=== PATIENT | male | born 1960 | race Caucasian/White ===

== ENCOUNTER → 2017-06-06 14:43 | Outpatient (POV) | payer BC, SELFPAY | PROVIDERS: Family Provider Family Medicine; Visit Provider Nurse Practitioner Acute Care | DX: Z00.00 Encounter for general adult medical examination without abnormal findings (principal) ==

== ENCOUNTER → 2018-07-17 12:31 | Outpatient (CLI) | payer BC, SELFPAY ==
--- NOTE | 2018-07-17 12:38 | CT_ITS ---
CT lung screening EXAM: CT LUNG LOW DOSE WO CONTRAST HISTORY: 84 pack-year smoking history, asymptomatic for lung cancer ITS.REASON: HX TOBACCO USE ORDERING PHYSICIAN: Corey Hampton MD PATIENT AGE: 58 years COMPARISON: None TECHNIQUE: The exam was performed on a GE Light Speed [address] scanner using 2.90 mGy CTDI. A low dose helical CT CHEST was performed on a multi-detector scanner. All CT scans at the facility use one or more dose reduction, viz: automated exposure control, ma/kV adjustment per patient size (including targeted exams where dose is matched to indication, i.e. head), or iterative reconstruction technique. The LDCT was performed in a facility that meets the criteria for the screening program. Data regarding this exam was submitted to ACR which is an approved registry. The order for this exam indicates that it came as a result of a lung cancer screening counseling shard decision-making visit that included all the elements required of such a visit including smoking cessation. The radiologist interpreting this exam meets the CMS criteria for the LDCT lung cancer screening program. The exam is reported using the Lung-RADS classification scale and reported to the ACR registry. NOTE: This study was performed for the specific purposes of lung cancer screening and is not an alternative to diagnostic chest CT. RADIATION DOSE: CTDI vol(CT dose Index-volume) = 2.90mG DLP (Dose Length Product) = 99.92 mGcm FINDINGS: COPD, centrilobular emphysema, 3 mm noncalcified nodule right upper lobe #28. 3 mm noncalcified nodule along the major fissure on the right #43 mm noncalcified nodule left lower lobe #34 Coronary artery calcifications. Gynecomastia. IMPRESSION: 1. Lung RADS Category: 2, benign 2. Other findings: Coronary artery disease RECOMMENDATIONS: 12 month LDCT follow-up
== END ==
PROVIDERS: PCP Family Medicine; Visit Provider Family Medicine
DX: Z12.2 Encounter for screening for malignant neoplasm of respiratory organs (principal); Z87.891 Personal history of nicotine dependence

== ENCOUNTER → 2019-07-30 12:29 | Outpatient (POV) | payer BC, SELFPAY | PROVIDERS: PCP Family Medicine; Visit Provider Specialist | DX: M79.642 Pain in left hand (principal); M79.641 Pain in right hand | CPT/HCPCS: 95886; 95909 ==

== ENCOUNTER 2019-12-18 09:33 | Emergency (ER) | payer BC, SELFPAY ==
--- NOTE | 2019-12-18 09:57 | HMH.EDUTC ---
[facility] [place] Clinical Impression: Viral syndrome Disposition: Home, Self-Care Condition on Discharge: Good Instructions: DI for Viral Syndrome Additional Instructions: Drink plenty of fluids. Take tylenol for pain or fever. Follow up with your regular doctor. GO TO THE ER FOR ANY WORSENING SYMPTOMS .FOLLOW THE DIRECTIONS ON THE COVID-19 HAND OUT THAT WE GAVE YOU REGARDING SELF-ISOLATION UNTIL YOU KNOW YOUR COVID-19 RESULTS Prescriptions: Ondansetron [Zofran 4mg ODT] 4 mg PO Q8HP PRN #10 tab.rapdis PRN Reason: Nausea Transmission Status: Received by [facility] # Azithromycin [Z-Hermilo 250mg Tab*] 250 mg PO UD DOSE PK #6 tab Transmission Status: Received by [facility] # Referrals: Corey Hampton MD [Primary Care Provider] - Forms: Work/School Release Time of Disposition: 10:31 Medical Decision Making - Medical Records Medical records reviewed: No: I reviewed the patient's medical records. - Karthik Inquiry Pt receiving controlled substance: No Vital Signs: 12/18/19 09:58 12/18/19 10:40 Temperature 97.9 F 97.9 F Temperature Source Oral Pulse Rate 76 Pulse Rate [Right Brachial] 76 Respiratory Rate 19 19 Blood Pressure 134/86 Blood Pressure [Left Arm] 134/86 Blood Pressure Mean [Left Arm] 102 Blood Pressure Source [Left Arm] Automatic Cuff Blood Pressure Position [Left Arm] Sitting 02 Sat by Pulse Oximetry 98 Oxygen Delivery Method Room Air [facility] [place] HPI - General Stated complaint: covid exposure, fever, headache Time Seen by Provider: 12/18/19 09:57 - History of Present Illness Provider Complaint: He c/o 1 day of chest congestion, n/v/d and generally feeling bad since yesterday. He was exposed to COVID last week by his daughter that lives with him. - Related Data Home Medications Medication Instructions Recorded Confirmed Triamterene/Hydrochlorothiazid 1 each PO DAILY 07/03/18 07/18/18 [Triamterene-Hctz 50-25 mg Cap] levoFLOXacin [Levaquin 500mg 500 mg PO BID 07/03/18 07/03/18 tab] Omeprazole [Omeprazole 20mg 20 mg PO DAILY 07/04/18 07/18/18 Capsule] Previous Rx's Medication Instructions Recorded Azithromycin [Z-Hermilo 250mg Tab*] 250 mg PO UD DOSE PK #6 tab 12/18/19 Ondansetron [Zofran 4mg ODT] 4 mg PO Q8HP PRN #10 tab.rapdis 12/18/19 Allergies Allergy/AdvReac Type Severity Reaction Status Date / Time No Known Allergies Allergy Verified 07/18/18 11:18 [facility] History - Hepatitis A Screen Attestation statement:: This patient has been screened for Hepatitis A risk factors. I have reviewed the patient's past medical history: Yes Medical History: Denies:: Cancer, Diabetes Mellitus Type 1, Diabetes Mellitus Type 2, Internal Pacemaker, MRSA, Seizures Other Medical History: Denies: Blood Transfusion Reaction Other Surgeries: No: Pacemaker Amputation: No Fractures: No - Social History Smoking Status: Former smoker Alcohol Intake: never Substance Use Type: denies use Occupational Status: employed Housing: house Household Members: family Family Hx:: No significant family history ROS Obtained: Yes All systems reviewed & no additional complaints - Constitutional Constitutional: Reports chills, Reports fever(s), Reports poor appetite, Reports malaise - Eyes Eyes: Denies eye discharge - ENT Ears, Nose, Mouth, and Throat: Reports as per HPI Physical Exam - General General appearance: alert, in no apparent distress - Head Head exam: atraumatic, normocephalic, normal inspection - Eye Eye exam: Present: normal appearance, PERRL, EOMI - ENT ENT exam: Present: normal exam, normal oropharynx, mucous membranes moist, TM's normal bilaterally, normal external ear exam - Neck Neck exam: Present: normal inspection, full ROM, trachea midline. Absent: meningismus, lymphadenopathy - Chest Chest inspection: Present: normal inspection, symmetric chest wall rise. Absent:
[2019-12-18 09:58] VITALS: BP 134/86; PULSE 76; RESP 19; TEMP 36.6; O2SAT 98; BMI 43.3
[2019-12-18 10:40] VITALS: BP 134/86; PULSE 76; RESP 19; TEMP 36.6; O2SAT 98
== END 2019-12-18 10:43 | disposition home or self-care (01) ==
PROVIDERS: Emergency Provider Nurse Practitioner Family; PCP Family Medicine
DX: B34.9 Viral infection, unspecified (principal); Z20.828 Contact with and (suspected) exposure to other viral communicable diseases
CPT/HCPCS: 99201; U0003

== ENCOUNTER → 2020-08-22 12:22 | Outpatient (CLI) | payer BC, SELFPAY ==
--- NOTE | 2020-08-22 12:41 | XR_ITS ---
PROCEDURE: XR CHEST 2V CLINICAL HISTORY: HTN,PRIOR SMOKER, COMPARISON: CR CXR CHEST(2 VIEWS-NOT PORTABLE) from 08/18/[address] lung screening from 07/17/2018 FINDINGS: There is cardiomegaly without failure. The right-sided heart is prominent. This may in part be related to pericardial fat pad as seen on previous screening lung CT 6 7 17 COPD changes. No lobar consolidation or collapse. No acute bony abnormalities. IMPRESSION: No acute finding. Dictated by: Nabeel Montesinos MD 08/22/2020 19:51 Nabeel Montesinos MD in [place] 08/22/2020 19:51
[2020-08-22 13:25] LABS: Hematocrit 43.5 % (42.0-52.0); Hemoglobin 14.6 g/dL (14.1-18.0); Mean Corpuscular HGB Conc 33.6 g/dL (31.8-35.4); Mean Corpuscular Hemoglobin 29.1 pg (27.0-31.2); Mean Corpuscular Volume 86.4 fl (80-94); Platelet Count 337 K/mm3 (142-424); Red Blood Count 5.03 M/mm3 (4.60-6.20); Red Cell Distribution Width 14.1 % (11.5-17.5); White Blood Count 6.7 K/mm3 (4.8-10.8)
[2020-08-22 13:35] LABS: Hemoglobin A1C 5.6 % (4.0-6.0)
[2020-08-22 13:54] LABS: Alanine Aminotransferase 24 U/L (12-78); Albumin Level 4.1 g/dl (3.5-5.0); Albumin/Globulin Ratio 1.2 (1.1-1.8); Alkaline Phosphatase 76 U/L (38-126); Anion Gap 12.4 mEq/L (5-15); Aspartate Amino Transferase 28 U/L (17-59); Bilirubin,Total 0.5 mg/dl (0.2-1.3); Blood Urea Nitrogen 17 mg/dl (9-20); Calcium 9.1 mg/dl (8.4-10.2); Carbon Dioxide 28 mmol/L (22.0-30.0); Chloride 101 mmol/L (98-107); Chol/HDL Ratio 3.3 (1-3.5); Cholesterol 172 mg/dl (140-200); Estimated Glomerular Filt Rate 69 ml/min (>60); GFR (African American) 83 ML/MIN (>60); Globulin 3.3 g/dL (1.3-3.2); Glucose 87 mg/dl (74-100); HDL Cholesterol 52 mg/dl (40-60); Phosphorous 3.8 mg/dl (2.5-4.5); Potassium 4.4 mmoL/L (3.5-5.1); Sodium 137 mmol/L (136-145); Total Protein,Serum 7.4 g/dl (6.3-8.2); Triglycerides 90 mg/dl (30-150); VLDL Cholesterol 18 mg/dL (0-40)
[2020-08-22 14:05] LABS: Direct LDL Cholesterol 96.84 mg/dL (100-129)
[2020-08-22 14:08] LABS: Intact Parathyroid Hormone 43.3 pg/mL (7.5-53.5)
[2020-08-22 14:11] LABS: 25-OH Vitamin D, Total 30.9 ng/mL (30-100)
[2020-08-22 14:27] LABS: Thyroid Stimulating Hormone 3.14 uIU/mL (0.465-4.68)
[2020-08-22 15:04] LABS: Folate 7.42 ng/mL
[2020-08-22 15:18] LABS: Iron 57 ug/dL (49-181)
[2020-08-22 15:54] LABS: Ferritin 37.1 ng/ml (17.9-464)
[2020-08-23 09:14] LABS: Prealbumin 22 mg/dL (10-36)
[2020-08-27 00:03] LABS: Vitamin B1 132.6 nmol/L (66.5-200.0)
[2020-08-27 18:09] LABS: Methylmalonic Acid 221 nmol/L (0-378)
[2020-08-28 01:08] LABS: Vitamin A 40.8 ug/dL (20.1-62.0); Vitamin E Alpha Tocopherol 5.9 mg/L (7.0-25.1); Vitamin E Gamma Tocopherol 1.6 mg/L (0.5-5.5)
== END ==
PROVIDERS: Visit Provider Physician Assistant Medical
DX: Z71.3 Dietary counseling and surveillance (principal); Z98.84 Bariatric surgery status
CPT/HCPCS: 36415; 71046; 80053; 80061; 82131; 82306; 82728; 82746; 83036; 83540; 83735; 83970; 84100; 84134; 84425; 84443; 84446; 84590; 85014; 85018; 85048; 85049

== ENCOUNTER → 2020-10-06 13:17 | Outpatient (CLI) | payer BC, SELFPAY | PROVIDERS: PCP Family Medicine; Visit Provider Family Medicine | DX: I10 Essential (primary) hypertension (principal); R40.0 Somnolence; R06.83 Snoring; E66.9 Obesity, unspecified; G25.81 Restless legs syndrome; Z68.42 Body mass index [BMI] 45.0-49.9, adult; G47.33 Obstructive sleep apnea (adult) (pediatric) | CPT/HCPCS: G0399 ==

== ENCOUNTER → 2021-05-23 10:02 | Outpatient (CLI) | payer BC, SELFPAY ==
--- NOTE | 2021-05-23 | ECG_ITS ---
APPROVED REPORT Exam: Resting ECG HR:68 bpm ECG Measurements Heart Rate 68 AXES IA 188 P 55 QRSd 97 QRS 46 QT 393 T 41 QTc 410 Conclusion SINUS RHYTHM NORMAL ECG UNCONFIRMED REPORT Electronically signed by : Luis Angel Naik MD 05/24/2021 13:54:11
--- NOTE | 2021-05-23 11:02 | XR_ITS ---
PROCEDURE INFORMATION: Exam: XR Chest Exam date and time: 05/23/2021 11:02 AM Age: 61 years old Clinical indication: Shortness of breath; Additional info: SOB TECHNIQUE: Imaging protocol: XR of the chest. Views: 2 views. COMPARISON: CR XR CHEST 2V 08/22/2020 12:44 PM FINDINGS: Lungs: No regions of consolidation . Pleural spaces: No pleural effusion. Heart/Mediastinum: Persistent prominence of the right heart border. Findings may correspond to a pericardial fat pad. There is borderline cardiomegaly. Bones/joints: Unremarkable. IMPRESSION: No evidence of acute cardiopulmonary disease.
== END ==
PROVIDERS: PCP Family Medicine; Visit Provider Surgery
DX: Z01.818 Encounter for other preprocedural examination (principal); R10.13 Epigastric pain; I10 Essential (primary) hypertension
CPT/HCPCS: 71046; 93005

== ENCOUNTER → 2021-06-29 13:13 | Outpatient (CLI) | payer BC, SELFPAY ==
[2021-06-29 14:03] LABS: Hematocrit 46.5 % (42.0-52.0); Hemoglobin 15.1 g/dL (14.1-18.0); Mean Corpuscular HGB Conc 32.5 g/dL (31.8-35.4); Mean Corpuscular Hemoglobin 30.2 pg (27.0-31.2); Mean Corpuscular Volume 92.9 fl (80-94); Platelet Count 254 K/mm3 (142-424); Red Blood Count 5.01 M/mm3 (4.60-6.20); Red Cell Distribution Width 14.1 % (11.5-17.5); White Blood Count 6.4 K/mm3 (4.8-10.8)
[2021-06-29 14:13] LABS: Hemoglobin A1C 5.5 % (4.0-6.0)
[2021-06-29 14:53] LABS: Alanine Aminotransferase 44 U/L (12-78); Alkaline Phosphatase 83 U/L (38-126); Aspartate Amino Transferase 43 U/L (17-59); Bilirubin,Total 0.7 mg/dl (0.2-1.3); Blood Urea Nitrogen 35 mg/dl (9-20); Calcium 8.8 mg/dl (8.4-10.2); Chloride 101 mmol/L (98-107); Cholesterol 159 mg/dl (140-200); Estimated Glomerular Filt Rate 57 ml/min (>60); GFR (African American) 68 ML/MIN (>60); Glucose 91 mg/dl (74-100); Iron 84 ug/dL (49-181); Magnesium 1.8 mg/dl (1.6-2.3); Phosphorous 3.8 mg/dl (2.5-4.5); Potassium 3.7 mmoL/L (3.5-5.1); Sodium 139 mmol/L (136-145); Total Protein,Serum 7.1 g/dl (6.3-8.2); Triglycerides 95 mg/dl (30-150); VLDL Cholesterol 19 mg/dL (0-40)
[2021-06-29 14:55] LABS: 25-OH Vitamin D, Total 41.6 ng/mL (30-100)
[2021-06-29 15:06] LABS: Direct LDL Cholesterol 94.09 mg/dL (100-129)
[2021-06-29 15:24] LABS: Thyroid Stimulating Hormone 2.33 uIU/mL (0.465-4.68)
[2021-06-29 15:28] LABS: Ferritin 116 ng/ml (17.9-464)
[2021-06-29 16:16] LABS: Intact Parathyroid Hormone 48.8 pg/mL (7.5-53.5)
[2021-06-29 17:11] LABS: Folate > 20.00 ng/mL
[2021-06-29 17:33] LABS: Albumin/Globulin Ratio 1.3 (1.1-1.8); Anion Gap 11.7 mEq/L (5-15); Carbon Dioxide 30 mmol/L (22.0-30.0); Globulin 3.1 g/dL (1.3-3.2)
[2021-06-29 17:34] LABS: Chol/HDL Ratio 4.5 (1-3.5); HDL Cholesterol 35 mg/dl (40-60)
[2021-07-01 08:20] LABS: Prealbumin 20 mg/dL (10-36)
[2021-07-06 14:10] LABS: Methylmalonic Acid 268 nmol/L (0-378)
[2021-07-06 17:09] LABS: Vitamin B1 146.9 nmol/L (66.5-200.0)
[2021-07-10 19:09] LABS: Vitamin A 53.3 ug/dL (20.1-62.0); Vitamin E Alpha Tocopherol 8.9 mg/L (7.0-25.1)
== END ==
PROVIDERS: PCP Family Medicine; Visit Provider Nurse Practitioner Family
DX: I10 Essential (primary) hypertension (principal); R63.4 Abnormal weight loss; E66.01 Morbid (severe) obesity due to excess calories; Z68.39 Body mass index [BMI] 39.0-39.9, adult
CPT/HCPCS: 36415; 80053; 80061; 82131; 82306; 82728; 82746; 83036; 83540; 83735; 83970; 84100; 84134; 84425; 84443; 84446; 84590; 85014; 85018; 85048; 85049

== ENCOUNTER → 2021-12-25 09:45 | Outpatient (CLI) | payer BC, SELFPAY | PROVIDERS: PCP Family Medicine; Visit Provider Specialist | DX: G47.33 Obstructive sleep apnea (adult) (pediatric) (principal); I10 Essential (primary) hypertension; Z86.69 Personal history of other diseases of the nervous system and sense organs; Z68.32 Body mass index [BMI] 32.0-32.9, adult | CPT/HCPCS: G0399 ==

== ENCOUNTER 2024-10-08 15:17 | Outpatient (CLI) | payer BC, SELFPAY ==
--- OUTSIDE RECORDS SUMMARY | 2024-10-08 15:19 | XMS_ITS | Data Portability ---
Author Organization [place] [facility] Address [address] [facility] [address] [place] [address] Care Team Providers Care Security Ambassador Name Role Phone ARIANA ANDERSON Primary Care Provider [phone] Assessment No assessment recorded. Plan of Treatment Reminders Order Date Submit Date Provider Last Modified By Organization Details Last Modified Time Details Appointments None recorded. Lab urinalysis , dipstick, auto 2018 019 [email or web address] [facility], [address], [place], [address], 9 15:47:32 Referral None recorded. Procedures None recorded. Surgeries None recorded. Imaging None recorded. Medication Orders doxycyclin e monohydrat e 100 mg capsule 2018 019 INTERFACE [facility] 591, [address], [address], 9 15:47:36 Patient TargetsNo targets recorded. Patient Instructions Encounter Date Encounter Id Patient Instructions Last Modified By Organization Details Last Modified Time 06/26/2018 [id number] healthy together [email or web address] Not availabl e 06/26/2018 15:47:32 Reason for Referral None Reported. Results Created Date Observation Date Name Description Value Unit Range Abnormal Flag Note LastModifiedBy Organization Detail LastModifiedTime 06/27/19 19 06/26/2018 urina lysis , dipst ick, auto Unknown Analyte Yellow Not Available [facility] [address], [place], [address], 06/26/2018 15:19:48 06/27/19 19 06/26/2018 urina lysis , dipst ick, auto Unknown Analyte Clear Not Available [facility] [address], [place], [address], 06/26/2018 15:19:48 06/27/19 19 06/26/2018 urina lysis , dipst ick, auto Unknown Analyte 1.010 Not Available [facility] [address] [facility] [address], [place], [address], 06/26/2018 15:19:48 06/27/19 19 06/26/2018 urina lysis , dipst ick, auto Unknown Analyte 1.003 - 1.035 Not Available [facility] [address] [facility] [address], [place], [address], 06/26/2018 15:19:48 06/27/19 19 06/26/2018 urina lysis , dipst ick, auto Unknown Analyte 6.0 Not Available [facility] [address] [facility] [address], [place], [address], 06/26/2018 15:19:48 06/27/1906/26/2018 urina lysis , dipst ick, auto Unknown Analyte 5.0 - 8.0 Not Available [facility] [address] [place] [address] [address], [place], [address], 06/26/2018 15:19:48 06/27/1906/26/2018 urina lysis , dipst ick, auto Unknown Analyte Negati ve Not Available [facility] [address] [facility] [address], [place], [address], 06/26/2018 15:19:48 06/27/19 19 06/26/2018 urina lysis , dipst ick, auto Unknown Analyte Negati ve Not Available [facility] [address], [place], [address], 06/26/2018 15:19:48 06/27/1906/26/2018 urina lysis , dipst ick, auto Unknown Analyte Negati ve Not Available [facility] [address] [facility] [address], [place], [address], 06/26/2018 15:19:48 06/27/19 19 06/26/2018 urina lysis , dipst ick, auto Unknown Analyte Negati ve Not Available [facility] [address] [facility] [address], [place], [address], 06/26/2018 15:19:48 06/27/19 19 06/26/2018 urina lysis , dipst ick, auto Unknown Analyte Negtiv e Not Available [facility] [address] [facility] [address], [place], [address], 06/26/2018 15:19:48 06/27/1906/26/2018 urina lysis , dipst ick, auto Unknown Analyte Negati ve - Trace Not Available [facility] [address] [place] [address] [address], [place], [address], 06/26/2018 15:19:48 06/27/19 19 06/26/2018 urina lysis , dipst ick, auto Unknown Analyte Normal Not Available [facility] [address] [place] [address] [address], [place], [address], 06/26/2018 15:19:48 06/27/19 19 06/26/2018 urina lysis , dipst ick, auto Unknown Analyte Normal Not Available [facility] [address], [place], [address], 06/26/2018 15:19:48 06/27/1906/26/2018 urina lysis , dipst ick, auto Unknown Analyte Negati ve Not Available [facility] [address], [place], [address], 06/26/2018 15:19:48 06/27/19 19 06/26/2018 urina lysis , dipst ick, auto Unknown Analyte Negati ve Not Available [facility] [address], [place], [address], 06/26/2018 15:19:48 06/27/1906/26/2018 urina lysis , dipst ick, auto Unknown Analyte Normal Not Available [facility] [address], [place], [address], 06/26/2018 15:19:48 06/27/1906/26/2018 urina lysis , dipst ick, auto Unknown Analyte Normal - 1mg/dl Not Available [facility] [address] [place] [address] [address], [place], [address], 06/26/2018 15:19:48 06/27/19 19 06/26/2018 urina lysis , dipst ick, auto Unknown Analyte Negati ve Not Available [facility] [address] [facility] [address], [place], [address], 06/26/2018 15:19:48 06/27/1906/26/2018 urina lysis , dipst ick, auto Unknown Analyte Negati ve Not Available [facility] [address] [facility] [address], [place], [address], 06/26/2018 15:19:48 06/27/1906/26/2018 urina lysis , dipst ick, auto Unknown Analyte Negati ve Not Available [facility] [address] [facility] [address], [place], [address], 06/26/2018 15:19:48 06/27/19 19 06/26/2018 urina lysis , dipst ick, auto Unknown Analyte Negati ve Not Available [facility] [address] [facility] [address], [place], [address], 06/26/2018 15:19:48 06/27/1906/26/2018 urina lysis , dipst ick, auto Unknown Analyte Clean Catch Not Available [facility] [address] [place] [address] [address], [place], [address], 06/26/2018 15:19:48 06/27/1906/26/2018 urina lysis , dipst ick, auto Unknown Analyte Automa eugene Not Available [facility] [address] [facility] [address], [place], [address], 06/26/2018 15:19:48 Result Notes None recorded. Medical Equipment None Reported. Allergies No known drug allergies Medications Name Sig Start Date Stop Date Status Note LastModified by Organization Details LastModified Time doxycycline monohydrate 100 mg capsule Take 1 capsule twice a day by oral route. 2018 active Not Available Not Available Not Avai lable triamterene 37.5 mg-hydrochlorot hiazide 25 mg tablet active Not Available Not Available Not Available methylprednisol one 4 mg tablets in a dose pack active Not Available Not Available No t Available brompheniramine -pseudoephedrin e-DM 2 mg-30 mg-10 mg/5 mL oral syrup active Not Available Not Available N ot Available fluticasone propionate 50 mcg/actuation nasal spray,suspensio n active Not Available Not Available Not Available Vitals Date Recorded Body height Body mass index (BMI) Body weight Heart rate Systolic And Diastolic Provider Name and Address Organization Details Last Updated DateTime 06/26/2018 172.72 cm 48.7 kg/m2 946008.5 6 g 92 /min 161/96 mm[Hg] Kathi Wolff [facility] 06/26/2018 15:17:16 Social History Question Answer Notes LastModified by Sediciiizat ion Details LastModified Time Tobacco Smoking Status Former Smoker Kathiyan Hallmanles [facility] 06/26/2018 15:17:52 How Much Tobacco Do You Chew? None Information not available 06/26/2018 Marital Status [email or web address] Informatio n not available 06/26/2018 What Was The Date Of Your Most Recent Tobacco Screening? 06/26/2018 Information n ot available 05/01/2019 Sex: Unknown Functional Status Question Answer Note LastModified by Organizat ion Details LastModified Time What is your level of alcohol consumption? Occasional [email or web address] Information not available 06/26/2018 Mental Status None recorded. Family History Nothing Reported. Medical History No medical history recorded. Past Encounters Encounter ID Performer Location Encounter Start Date Encounter Closed Date Diagnosis/Indication Diagnosis SNOMED-CT Code Diagnosis ICD10 Code Diagnosis Note [id number] EDIS VALADEZ MD [facility] [address] [place] [address] 06/26/2018 13:56:27 06/28/2018 08:02:38 Abscess of scrotum 07911922 N49.2 I suggest we treat him with antibiotic s. We discussed excision of this diseased skin. He feels much better and there is no obvious area requiring incision and drainage. He requested this be scheduled and [place] for excision of chronic dermal cysts of the scrotum Health Concerns Section Related Observation LastModified by Organization Carter hernandez LastModified Time None Recorded Concern Status LastModified by Organization Details LastModified Time None Recorded Advance Directives Directive None Recorded Payers Insurance Date Sequence Insurance Name Policy Number Policy Rodriges Covered Member ID Rodriges Member ID Guarantor Name 06/23/2018 1 [place] KATH GRAJEDA [facility] [id number] Roshan Hector [id number]
--- OUTSIDE RECORDS SUMMARY | 2024-10-08 15:19 | XMS_ITS | Clinical Summary ---
Author Organization Healthcare Address [address] [place] [address] Care Team Providers Care Mold Bunch Trimmer Name Role Phone Fran Hampton MD Primary Care Provider [phone] Family History Medical History Relation Name Comments Black Lung Father Heart attack Father Diabetes Other Other cancer Sister Relation Name Status Comments Father Other Sister Social History Tobacco Use Types Packs/Day Years Used Date Smoking Tobacco: Every Day Alcohol Use Standard Drinks/Week Comments Yes 0 (1 standard drink = 0.6 oz pure alcohol) Alcoholic Drinks/day: Minimum alcohol consumption Sex and Gender Information Value Date Recorded Sex Assigned at Not on file Legal Sex Male 7:34 PM EDT Gender Identity Not on file Sexual Orientation Not on file Last Filed Vital Signs Vital Sign Reading Time Taken Comments Blood Pressure - - Pulse - - Temperature - - Respiratory Rate - - Oxygen Saturation - - Inhaled Oxygen Concentration - - Weight 114 kg (250 lb 15.9 oz) 09/19/2013 3:08 P M EDT Height 172.7 cm (5' 8 ) 09/19/2013 3:08 PM EDT Body Mass Index 38.16 09/19/2013 3:08 PM EDT Plan of Treatment Not on file Care Teams Mold Bunch Trimmer Relationship Specialty Start Date End Date Fran Hampton MD [address] [place] [address] PCP - General 07/25/20
--- NOTE | 2024-10-08 15:21 | XR_ITS ---
FINAL REPORT CLINICAL HISTORY: PAIN FINDINGS: 3 views of the left shoulder were obtained. There is no fracture or dislocation. The joint space is preserved. Soft tissues are unremarkable. IMPRESSION: No acute osseous abnormality of the left shoulder. Reviewed, Interpreted and Dictated by Yoana Lucia MD Transcribed by ETHEL Tillman Authenticated and [facility]
== END 2024-10-08 23:59 | disposition home or self-care (01) ==
LOC: RAD 15:18
PROVIDERS: PCP Family Medicine; Visit Provider Family Medicine
DX: M25.512 Pain in left shoulder (principal); G89.29 Other chronic pain
CPT/HCPCS: 73030

== ENCOUNTER 2024-10-22 07:20 | Outpatient (CLI) | payer BC, SELFPAY ==
--- NOTE | 2024-10-22 07:21 | CT_ITS ---
FINAL REPORT CLINICAL HISTORY: SCREENING former smoker quit 8.5 years ago 1ppd x42 years COMPARISON: None FINDINGS: CT CHEST LOW DOSE SCREENING HISTORY: Screening exam for lung cancer. DOSE: CTDI vol: 2.90 mGy, DLP: 97.68 mGy*cm TECHNIQUE: Axial CT without IV contrast administration using low dose protocol. This study was performed with techniques to keep radiation doses as low as reasonably achievable, (ALARA). Individualized dose reduction techniques using automated exposure control or adjustment of mA and/or kV according to the patient's size were employed. No acute lung disease is present. 5 mm nodules in the anterior right upper lobe on images 28 and 31 of series 3. There is also a lingular nodule measuring 7 mm on image 36. Evidence of old calcified granulomatous disease is noted. No pleural or pericardial effusion is seen. No adenopathy or mass lesion is present. IMPRESSION: Pulmonary nodules measuring up to 7 mm. LUNG RADS CATEGORY 3 RECOMMENDATION: 6 month LDCT follow up Reviewed, Interpreted and Dictated by Corey Diehl MD Transcribed by Isela Suárez Authenticated and . [facility]
--- OUTSIDE RECORDS SUMMARY | 2024-10-22 07:22 | XMS_ITS | Clinical Summary ---
Author Organization Healthcare Address [address] [place] [address] Care Team Providers Care Strategy Execution Consultant Name Role Phone Fran Hampton MD Primary Care Provider [phone] Family History Medical History Relation Name Comments [...] of Treatment Not on file Care Teams Strategy Execution Consultant Relationship Specialty Start Date End Date Fran Hampton MD [address] [place] [address] PCP - General 07/25/20
== END 2024-10-22 23:59 ==
LOC: RAD 07:21
PROVIDERS: PCP Family Medicine; Visit Provider Family Medicine
DX: Z12.2 Encounter for screening for malignant neoplasm of respiratory organs (principal); R91.8 Other nonspecific abnormal finding of lung field; Z87.891 Personal history of nicotine dependence
CPT/HCPCS: 71271

== ENCOUNTER 2024-12-03 16:56 | Outpatient (CLI) | payer BC, SELFPAY ==
--- OUTSIDE RECORDS SUMMARY | 2024-10-08 09:45 | XMS_ITS ---
Author Organization [facility] Address [address] [place] [id number] Care Team Providers Care Burnt Lime Drawer Name Role Phone Darcy Hampton Primary Care Provider Allergies No Known Allergies Results Component Value Reference Range Notes X ray : Shoulder, left Reviewed date:10/12/2024 12:19:39 PM Interpretation:Negative Performing Lab: Notes/Report: Negative REASON FOR VISIT 3 week f/u Medications Medication SIG (Take, Route, Frequency, Duration) Notes Start Date End Date Status Celecoxib 200 MG 1 capsule as needed Orally Once a day; Duration: 30 days 10/08/2024 Active Omeprazole 40 MG 1 cap(s) orally once a day 02/12/2015 Active Multivitamin - 1 tablet Orally Once a day; Duration: 30 day(s) Active Mupirocin 2 % 1 application Externally Twice a day; Duration: 5 days 09/10/2024 Not-Taking Clotrimazole-Betamethason e 1-0.05 % 1 application Externally Twice a day 09/10/2024 Active Tirzepatide-Weight Management 2.5 MG/0.5ML 0.5 mL Subcutaneous; Duration: 30 day(s) 10/08/2024 Active Social History Tobacco Use: Social History Observation Description Date Details (start date - stop date) Former Smoker NA - NA CURRENT TOBACCO USE: Question Answer Notes Are you a: former smoker Problems Problem Type SNOMED Code ICD Code Onset Dates Problem Status W/U Status Risk Notes Problem Chronic pain (45411410) Other chronic pain (G89.29) Active confirmed Problem Obese class II ([id number] 105) BMI 35.0-35.9,cleo lt (Z68.35) Active confirmed Vital Signs Weight 233.2 lbs 10/08/2024 Blood pressure systolic 122 mm Hg 10/09/19 25 Blood pressure diastolic 70 mm Hg 025 Heart Rate 61 /min 10/08/2024 Height 68 in 10/08/2024 BMI 35.45 kg/m2 10/08/2024 Encounters Encounter Location Date Provider Diagnosis [facility] [address] [place] [id number] 10/08/2024 Darcy Hampton Pain in left shoulde r M25.512 ; Other chronic pain G89.29 ; BMI 35.0-35.9,adult Z68.35 and Pulmonary nodules R91.8 Assessments Encounter Date Diagnosis (ICD Code) Assessment Notes Treatment Notes Treatment Clinical Notes Section Notes 10/08/2024 Pain in left shoulder (ICD-10 - M25.512) 10/08/2024 Other chronic pain (ICD-10 - G89.29) 10/08/2024 BMI 35.0-35.9,adult (ICD-10 - Z68.35) 10/08/2024 Pulmonary nodules (ICD-10 - R91.8) Plan Of Treatment Medication Medication Name Sig Start Date Stop Date Notes Celecoxib 200 MG 1 capsule as needed Orally Once a day; Duration: 30 days 10/08/2024 Tirzepatide-Weight Managemen t 2.5 MG/0.5ML 0.5 mL Subcutaneous; Duration: 30 day(s) 10/08/2024 Next Appt Details Follow Up: 2 Weeks, Reason: Progress Notes * BART MALDONADODOB:1960 (64 yo M)Acc No.[id number]:10/08/2024 Progress Notes Patient: BART PRESCOTT Provider: Darcy Hampton M.D. :1960 A ge:64 Y S ex:Male Date:10/08/2024 Address:[address] [place] [address] [phone] Subjective: * Chief Complaints: * 1 . 3 week f/u. * HPI: D ermatology: The patient is here for a 3 week follow up on scalp dermatitis. It has dramatically improved, DESPITE NOT GETTING THE MUPIROCIN WHICH WAS NOT SENT. The axillary rashes have improved as well as has the groin rash. He does have papular rash of the left chest which looks much like varicella, but he has a healiing similar area on the right!. S houlder/Upper arm: Pt states that left shoulder not getting no better. H PI: Patient is here today for P t states that last time he was here one medication was like sent in (Mupirocin) if you could send it in today. * ROS: D ERMATOLOGY: no R nicole. n o H courtney. G ASTROENTEROLOGY: no N ausea. n o V omiting. n o D iarrhea.? U ROLOGY: no D ifficulty urinating. n o B lood in urine. * Medical History: H ypertension, Esophageal Reflux. * Surgical History: E GD gastritis, hiatal hernia - no surgery 10/2010, Cholecystectomy 03/04/2005, Cyst Removal Dr. Cook. 06/2018, Gastric sleeve 06/01/2021. * Hospitalization/Major Diagno stic Procedure: A bdominal Pain- H 10/07/2010, Abdominal pain 08/2016. * Family History: F ather: , Black Lung. M other: unknown. M aternal aunt: DM. 3 brother(s) , 2 sister(s) . 2 son(s) , 2 daughter(s) - healthy. . * Social History: C URRENT TOBACCO USE A re you a: f ormer smoker. C affeine: yes, frequency:daily. Exercise: no. Home smoke detector use: no. Marital Status: . New since last visit: none. 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 Past smoking status: yes, PPD: 1 , years: 45. Occup. exposure: none. Recreational drug use: no. Alcohol: no. Travel ouside [place]: no. * Medications: T aking Multivitamin - Tablet 1 tablet Orally Once a day , Taking Omeprazole 40 MG Capsule Delayed Release 1 cap(s) orally once a day , Taking Clotrimazole-Betamethasone 1-0.05 % Cream 1 application Externally Twice a day , Not-Taking Mupirocin 2 % Ointment 1 application Externally Twice a day , Medication List reviewed and reconciled with the patient * Allergies: N .K.D.A. Objective: * Vitals: W t: 233.2, Temp: 97.6, BP: 122/70, HR: 61, Nurse: wilder, Ht: 68, BMI:35.45. * Examination: G eneral Examination: General Appearance: N AD. H EENT: u nremarkable.? The scalp rash has cleared completely.. O ral cavity: n o lesions, mucosa moist and WNL, no erythema. N richard: s upple, no lymphadenopathy. C hest: n ormal shape and expansion. H eart: R SR. L ungs: c lear to auscultation. N eurologic Exam: I ntact, gait normal. S kin: n ormal, no rash. P eripheral pulses: n ormal (2+) bilaterally.?Extremities: n o leg edema. D ermatology: Trunk: a xillary rashes have cleared., maculopapular lesions of the left chest with similar lesions resolving on the right.. Assessment: * Assessment: 1. P ain in left shoulder - M25.512 (Primary) 2 . O ther chronic pain - G89.29 3 . B PA 35.0-35.9,adult - Z68.35 4 . P ulmonary nodules - R91.8 Plan: * Treatment: 2.?Other chronic pain?Imaging: X ray : Shoulder, left (Performed Date - 10/08/2024)?Negative* Angeles Jaquez 10/08/2024 03:1 1:50 PM EDT > printed and gave to maryKyleeHalima fuller Carmina 10/12/2024 12:19:10 PM EDT > Patient informed of normal results. 3.?BMI 35.0-35.9,adult? Start Tirzepatide-Weight Management Solution Auto-injector, 2.5 MG/0.5ML, 0.5 mL, Subcutaneous, 30 day(s), 2.?? * Procedure Codes: 1 036F TOBACCO NON-USER, G8783 BP SCR PRFRM RCMDD DEFIND SCR INTVL, G8752 MOST RECENT SYSTOLIC BP < 140MM HG, G8754 MOST RECENT DIASTOLIC BP < 90MM HG * Follow Up: 2 Weeks * Images: Billing Information: * Visit Code: 40210 Office Visit, Est Pt., Level 3. * Procedure Codes: 1036F TOBACCO NON-USER. G8783 BP SCR PRFRM RCMDD DEFIND SCR INTVL. G8752 MOST RECENT SYSTOLIC BP < 140MM HG. G8754 MOST RECENT DIASTOLIC BP < 90MM HG. * Electronic signature of Darcy Hampton MD on 12/03/2024 at 04:58 PM EDT Sign off status: Pending * Provider: Darcy Hampton M.D. Date: 0 10/08/2024 Generated for Leonidi racheal/Facundo/eTransmitting on: 0 12/03/2024 04:58 PM EDT History and Physical Notes * HPI (History of Present Illness) Category Sub-Category Detail Notes Category Not es HPI Patient is here today for Pt sta ramón that last time he was here one medication was like sent in (Mupirocin) if you could send it in today Examination Category Sub-Category Detail Notes Category Not es General Examination HEENT: unremarkable . The scalp rash has cleared completely. Heart: RSR Lungs: clear to auscultatio n Extremities: no leg edema General Appearance: NAD Skin: normal, no rash Neurologic Exam: Intact, gait normal Neck: supple, no lymphaden opathy Oral cavity: no lesions, mucosa m oist and WNL, no erythema Peripheral pulses: normal (2+) bilatera lly Chest: normal shape and exp ansion Dermatology Trunk: axillary rashes have cleared., maculopapular lesions of the left chest with similar lesions resolving on the right.
--- OUTSIDE RECORDS SUMMARY | 2024-10-16 10:53 | XMS_ITS ---
Author Organization [facility] Address [address] [facility] [address] [facility] [address] [place] [id number] Care Team Providers Care Fourth Mate Name Role Phone Darcy Hampton Primary Care Provider Results Component Value Reference Range Notes CT Scan : Chest, low dose Reviewed date:10/24/2024 01:16:48 PM Interpretation:pulmonary nodules, 6 month f/u Performing Lab: Notes/Report: pulmonary nodules, 6 month f/u REASON FOR VISIT due LDCT Encounters Encounter Location Date Provider Diagnosis [facility] [address] [facility] [address] [facility] [address] [place] [id number] 10/16/2024 Darcy Hampton Encounter for screening for malignant neoplasm of respiratory organs Z12.2 and Ex-cigarette smoker Z87.891 Assessments Encounter Date Diagnosis (ICD Code) Assessment Notes Treatment Notes Treatment Clinical Notes Section Notes 10/16/2024 Encounter for screening for malignant neoplasm of respiratory organs (ICD-10 - Z12.2) 10/16/2024 Ex-cigarette smoker (ICD-10 - Z87.891) Plan Of Treatment No Information Progress Notes * BART MALDONADODOB:1960 (64 yo M)Acc No.[id number]:10/16/2024 Patient: BART PRESCOTT :1960 A ge:64 Y S ex:Male [address] [place] [address] Subjective: * Chief Complaints: * d ue LDCT * Medical History: * Surgical History: * Hospitalization/Major Diagno stic Procedure: * Medications: Objective: * Vitals: * Physical Examination: Assessment: * Assessment: 1. E ncounter for screening for malignant neoplasm of respiratory organs - Z12.2 (Primary) 2 . E x-cigarette smoker - Z87.891 Plan: * Treatment: 2.?Ex-cigarette smoker?Imaging: CT Scan : Chest, low dose* Gale Aly 10/17/2024 02:09 :51 PM EDT > sent to [facility] for referral to [facility] * Procedure Codes: * true * Date: Generated for Antolin springer/Facundo/Alidasmitting on: 0 12/03/2024 04:58 PM EDT
--- OUTSIDE RECORDS SUMMARY | 2024-10-22 10:00 | XMS_ITS ---
[facility] Address [address] [place] [id number] Care Team Providers Care Traffic Law Attorney Name Role Phone Darcy Hampton Primary Care Provider Allergies No Known Allergies REASON FOR VISIT 2 week f/u Medications Medication SIG (Take, Route, Frequency, Duration) Notes Start Date End Date Status Tirzepatide-Weight Management 2.5 MG/0.5ML 0.5 mL Subcutaneous; Duration: 30 day(s) 10/08/2024 Active Losartan Potassium 25 MG 1 tablet Orally Once a day; Duration: 30 days 10/22/2024 Active Clotrimazole-Betamethason e 1-0.05 % 1 application Externally Twice a day 09/10/2024 Active Celecoxib 200 MG 1 capsule as needed Orally Once a day; Duration: 30 days 10/08/2024 Active Omeprazole 40 MG 1 cap(s) orally once a day 02/12/2015 Active Mupirocin 2 % 1 application Externally Twice a day; Duration: 5 days 09/10/2024 Not-Taking Multivitamin - 1 tablet Orally Once a day; Duration: 30 day(s) Active Social History Tobacco Use: Social History Observation Description Date Details (start date - stop date) Former Smoker NA - NA CURRENT TOBACCO USE: Question Answer Notes Are you a: former smoker Vital Signs Weight 233.8 lbs 10/22/2024 Blood pressure systolic 142 mm Hg 10/23/19 25 Blood pressure diastolic 90 mm Hg 025 Heart Rate 54 /min 10/22/2024 Height 68 in 10/22/2024 BMI 35.55 kg/m2 10/22/2024 Encounters Encounter Location Date Provider Diagnosis [facility] [address] [place] [id number] 10/22/2024 Darcy Hampton Pain in left shoulde r M25.512 ; Other chronic pain G89.29 ; Essential hypertension I10 and BMI 35.0-35.9,adult Z68.35 Assessments Encounter Date Diagnosis (ICD Code) Assessment Notes Treatment Notes Treatment Clinical Notes Section Notes 10/22/2024 Pain in left shoulder (ICD-10 - M25.512) 10/22/2024 Other chronic pain (ICD-10 - G89.29) 10/22/2024 Essential hypertension (ICD-10 - I10) 10/22/2024 BMI 35.0-35.9,adult (ICD-10 - Z68.35) Plan Of Treatment Medication Medication Name Sig Start Date Stop Date Notes Losartan Potassium 25 MG 1 tablet Orally Once a day; Duration: 30 days 10/22/2024 Next Appt Details Follow Up: 2 Weeks, Reason: Progress Notes * BART MALDONADODOB:1960 (64 yo M)Acc No.[id number]:10/22/2024 Progress Notes Patient: BART PRESCOTT Provider: Darcy Hampton M.D. :1960 A ge:64 Y S ex:Male Date:10/22/2024 Address:[address] [place] [address] [id number] Subjective: * Chief Complaints: * 1 . 2 week f/u. * HPI: S houlder/Upper arm: The pt is here for a 2 week follow up on Left shoulder pain and shoulder xray. See pt docs. Pt states the pain is about the same. 64 year old male presents with c/o shoulder pain l eft.? E NT/respiratory: Low dose CT done this AM reviewed. To be repeated in 6 months. * ROS: D ERMATOLOGY: no R nicole. [...] Hospitalization/Major Diagno stic Procedure: A bdominal Pain- [facility] 10/07/2010, Abdominal pain 08/2016. * Family History: [...] . New since last visit: none. 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 Past smoking status: yes, PPD: 1 , years: 45. Occup. exposure: none. Recreational drug use: no. Alcohol: no. Travel ouside [place]: no. * Medications: T aking Multivitamin - Tablet 1 tablet Orally Once a day , Taking Omeprazole 40 MG Capsule Delayed Release 1 cap(s) orally once a day , Taking Clotrimazole-Betamethasone 1-0.05 % Cream 1 application Externally Twice a day , Taking Celecoxib 200 MG Capsule 1 capsule as needed Orally Once a day , Taking Tirzepatide-Weight Management 2.5 MG/0.5ML Solution Auto-injector 0.5 mL Subcutaneous , Not-Taking Mupirocin 2 % Ointment 1 application Externally Twice a day , Medication List reviewed and reconciled with the patient * Allergies: N .K.D.A. Objective: * Vitals: W t: 233.8, Temp: 98.0, BP: 142/90, HR: 54, Nurse: EVI, Ht: 68, Repeat BP: 152/88, BMI:35.55. * Examination: G eneral Examination: General Appearance: N AD. H EENT: u nremarkable.?Oral cavity: n o lesions, mucosa moist and WNL, no erythema. N richard: s upple, no lymphadenopathy. C hest: n ormal shape and expansion. H eart: R SR. L ungs: c lear to auscultation. N eurologic Exam: I ntact, gait normal. S kin: n ormal, no rash.?Peripheral pulses: n ormal (2+) bilaterally. E xtremities: n o leg edema. ? Assessment: * Assessment: 1. P ain in left shoulder - M25.512 (Primary) 2 . O ther chronic pain - G89.29 3 . E ssential hypertension - I10 4 . B ID 35.0-35.9,adult - Z68.35 Plan: * Treatment: * Procedure Codes: 1 036F TOBACCO NON-USER, 3077F SYST BP = 140 MM HG6 IT, 3079F DIAST BP 80-89 MM HG * Follow Up: 2 Weeks * Images: Billing Information: * Visit Code: 37532 Office Visit, Est Pt., Level 3. * Procedure Codes: 1036F TOBACCO NON-USER. 3077F SYST BP = 140 MM HG6 IT. 3079F DIAST BP 80-89 MM HG. * Electronic signature of Darcy Hampton MD on 12/03/2024 at 04:58 PM EDT Sign off status: Pending * Provider: Darcy Hampton M.D. Date: 0 10/22/2024 Generated for Antolin springer/Facundo/Angeitting on: 0 12/03/2024 04:58 PM EDT History and Physical Notes * HPI (History of Present Illness) Category Sub-Category Detail Notes Category Not es Shoulder/Upper arm shoulder pain left Examination Category Sub-Category Detail Notes Category Not es General Examination HEENT: unremarkable Heart: RSR Lungs: clear to auscultatio n Extremities: no leg edema General Appearance: NAD Skin: normal, no rash Neurologic Exam: Intact, gait normal Neck: supple, no lymphaden opathy Oral cavity: no lesions, mucosa m oist and WNL, no erythema Peripheral pulses: normal (2+) bilatera lly Chest: normal shape and exp ansion
--- NOTE | 2024-12-03 | XR_ITS ---
FINAL REPORT CLINICAL HISTORY: CONTUSION OF LEFT CHEST WALL COMPARISON: 05/23/2021 FINDINGS: PA and lateral views of the chest were obtained. The cardiac and mediastinal silhouettes are within normal limits. The lungs are clear. There is no pleural effusion or pneumothorax. No acute osseous abnormality is identified. IMPRESSION: No radiographic evidence of acute cardiac or pulmonary disease. Reviewed, Interpreted and Dictated by Yoana Lucia MD Transcribed by Isela Suárez Authenticated and [facility]
--- NOTE | 2024-12-03 | XR_ITS ---
FINAL REPORT CLINICAL HISTORY: LT CHEST WALL CONTUSION FINDINGS: 3 views of the left ribs were obtained. There is no prior exam for comparison. There are minimally displaced anterolateral left 8th and 9th rib fractures. The visualized lungs are clear. No pneumothorax is identified. IMPRESSION: Minimally displaced anterolateral left 8th and 9th rib fractures without pneumothorax. Reviewed, Interpreted and Dictated by Yoana Lucia MD Transcribed by Isela Suárez Authenticated and [facility]
--- OUTSIDE RECORDS SUMMARY | 2024-12-03 16:58 | XMS_ITS | Clinical Summary ---
Author Organization Healthcare Address [address] [place] [address] Care Team Providers Care Transport Truck Driver Name Role Phone Fran Hampton MD Primary Care Provider [phone] Family History Medical History Relation Name Comments [...] of Treatment Not on file Care Teams Transport Truck Driver Relationship Specialty Start Date End Date Fran Hampton MD [address] [place] [address] PCP - General 07/25/20
--- OUTSIDE RECORDS SUMMARY | 2024-12-03 16:59 | XMS_ITS | Patient Health Record ---
Author Organization [facility] Address [address] [place] [id number] Care Team Providers Care Clinical Nurse Manager Name Role Phone Darcy Hampton Primary Care Provider [phone] Pierce Coley Unavailable [phone] Allergies No Known Allergies Results Component Value Reference Range Notes X ray : Shoulder, left Reviewed date:10/12/2024 12:19:39 PM Interpretation:Negative Performing Lab: Notes/Report: Negative CT Scan : Chest, low dose Reviewed date:10/24/2024 01:16:48 PM Interpretation:pulmonary nodules, 6 month f/u Performing Lab: Notes/Report: pulmonary nodules, 6 month f/u CBC Venipuncture (in house) Reviewed date:09/10/2024 07:11:06 PM Interpretation: Performing Lab: Notes/Report: wbc 7.2 3.5 - 10 lymph 28.9 15 - 50 mid 7.0 2 - 15 gran 64.1 35 - 80 rbc 4.72 3.5 - 5.5 hgb 14.2 11.5 - 16.5 hct 43.1 35 - 55 mcv 91.3 75 - 100 mch 30.2 25 - 35 mchc 33.0 31 - 38 platlet 353 100 - 400 Glycohemoglobin A1c (in hous e) Reviewed date:09/12/2024 01:08:06 PM Interpretation:5.3% Normal Performing Lab: Notes/Report: 5.3% Normal glycohemoglobin 5.3% 5 - 6.5 % P-Comprehensive Metabolic Pa niranjan (CMP) Reviewed date:09/12/2024 01:08:06 PM Interpretation:Normal Performing Lab: Notes/Report: CLIA: [id number] Kaleb Conrad MD, Product Safety Technical Assistant [address] [place] [address] [place] [address] Test performed by [facility] Sodium 141 135-145 mmol/L Potassium 3.9 3.5-5.3 mmol/L Chloride 104 97-108 mmol/L CO2 26 20-32 mmol/L Glucose 77 65-99 mg/dL BUN 23 8-23 mg/dL Creatinine 0.85 0.70-1.30 mg/dL Calcium 8.9 8.6-10.4 mg/dL eGFR by Creatinine 98 >59 mL/min/1.73m2 Protein 7.0 6.0-8.3 g/dL Albumin 3.9 3.5-5.3 g/dL Alkaline Phosphatase 73 40-129 IU/L ALT (SGPT) 16 <5-55 IU/L AST (SGOT) 21 <5-46 IU/L Bilirubin, Total 0.5 <0.2-1.2 mg/dL A/G Ratio 1.3 1.1-2.5 P-PSA Reviewed date:09/12/2024 01:08:06 PM Interpretation:Normal Performing Lab: Notes/Report: Test performed by [facility] [address] [place] [address] [place] [id number] Kaleb Conrad MD, Product Safety Technical Assistant CLIA: [id number] PSA 1.82 <4.00 ng/mL Please note this is an ultrasensitive PSA assay with a lower limit of detection of 0.014 ng/mL. This test is performed by the Nati ECLIA methodology. Values obtained with different assay methods or kits cannot be directly compared. Urinalysis - Inhouse Reviewed date:08/13/2024 01:30:56 PM Interpretation: Performing Lab: Notes/Report: Color/Clarity yellow Leuk neg Nitrite neg Urobili 3.2 Protein neg pH 7.0 Blood neg Sp. Gr. 1.020 Ketone neg Bili neg Gluc neg Medications Medication SIG (Take, Route, Frequency, Duration) Notes Start Date End Date Status Clotrimazole-Betamethasone 1-0.05 % 1 application Externally Twice a day Active Losartan Potassium 25 MG 1 tablet Orally Once a day; Duration: 30 days 10/22/2024 Active Celecoxib 200 MG 1 capsule as needed Orally Once a day; Duration: 30 days 10/08/2024 Active methylPREDNISolone 4 MG as directed Orally 025 Active Mupirocin 2 % 1 application Externally Twice a day; Duration: 5 days 09/10/2024 Not-Taking Multivitamin - 1 tablet Orally Once a day; Duration: 30 day(s) Active Omeprazole 40 MG 1 cap(s) orally once a day 02/12/2015 Active Immunizations Vaccine Route Administration Date Status Comme nts Shingrix IM Intramuscular 10/05/2021 Administered Shingrix IM Intramuscular 01/18/2022 Administered Tetanus Tdap-Adacel (over 7yrs) IM Intramuscular 10/05/2021 Administered Social History Tobacco Use: Social History Observation Description Date Details (start date - stop date) Former Smoker NA - NA CURRENT TOBACCO USE: Question Answer Notes Are you a: former smoker Problems Problem Type SNOMED Code ICD Code Onset Dates Problem Status W/U Status Risk Notes Problem Essential hypertension (16867750) Essential hypertension (I10) Active confirmed Problem BMI 30+ - obesity (884722666) BMI 32.0-32.9,adult (Z68.32) Active confirmed Problem Body mass index 40+ - severely obese (587858424) BMI 45.0-49.9, adult (Z68.42) Active confirmed Problem Nicotine dependence (75698695) Personal history of nicotine dependence (Z87.891) Active confirmed Problem Male erectile disorder (219462897) Male erectile disorder (N52.9) Active confirmed Problem Chronic pain (63388624) Other chronic pain (G89.29) Active confirmed Problem Obese class II (555206133812258 ) BMI 35.0-35.9,adult (Z68.35) Active confirmed Problem Body mass index 40+ - severely obese (553094108) Body mass index (BMI) of 40.1 to 44.9 in adult (Z68.41) Active confirmed Problem Obesity (710780933) Obesity due to excess calories, unspecified obesity severity (E66.09) Active confirmed Problem Lower urinary tract symptoms due to benign prostatic hypertrophy (23140511756180) Benign prostatic hyperplasia with lower urinary tract symptoms (N40.1) Active confirmed Problem Bilateral carpal tunnel syndrome (977264148478062 01) Bilateral carpal tunnel syndrome (G56.03) Active confirmed Vital Signs Heart Rate 52 /min 12/03/2024 Blood pressure diastolic 80 mm Hg 12/03/2024 Height 68 in 12/03/2024 Blood pressure systolic 142 mm Hg 12/03/2024 Weight 228.8 lbs 12/03/2024 BMI 34.79 kg/m2 12/03/2024 Encounters Encounter Location Date Provider Diagnosis [facility] [address] [place] [id number] 08/13/2024 Pierce Coley Encounter for Depart ment of Transportation (DOT) examination for [place] license Z02.4 [facility] [address] [place] [id number] 09/10/2024 Darcy Hamptno Seborrheic dermatiti s of scalp L21.9 ; Intertrigo L30.4 ; Perianal pruritus L29.0 ; Essential hypertension I10 ; Obesity due to excess calories, unspecified obesity severity E66.09 ; Straining to void R39.16 and Benign prostatic hyperplasia with lower urinary tract symptoms N40.1 [facility] [address] [place] [id number] 10/08/2024 Darcy Hampton Pain in left shoulde r M25.512 ; Other chronic pain G89.29 ; BMI 35.0-35.9,adult Z68.35 and Pulmonary nodules R91.8 [facility] [address] [place] [id number] 10/22/2024 Darcy Hampton Pain in left shoulde r M25.512 ; Other chronic pain G89.29 ; Essential hypertension I10 and BMI 35.0-35.9,adult Z68.35 [facility] [address] [place] [id number] 12/03/2024 Darcy Hampton Contusion of left ch est wall, initial encounter S20.212A and Contusion of left lung, initial encounter S27.321A [facility] [address] [place] [id number] 09/25/2024 Darcy Hampton Screening for colon cancer Z12.11 [facility] [address] [place], [place] [id number] 10/16/2024 Darcy Hampton [facility] [address] [place], [place] [id number] 10/16/2024 Darcy Hampton Encounter for screen ing for malignant neoplasm of respiratory organs Z12.2 and Ex-cigarette smoker Z87.891 [facility] [address] [place], [place] [id number] 10/23/2024 Darcy Hampton [facility] [address] [place], [place] [id number] 10/24/2024 Darcy Hampton [facility] [address] [place], [place] [id number] 11/10/2024 Darcy Hampton BMI 35.0-35.9,adult Z68.35 Assessments Encounter Date Diagnosis (ICD Code) Assessment Notes Treatment Notes Treatment Clinical Notes Section Notes 08/13/2024 Encounter for Department of Transportation (DOT) examination for [place] license (ICD-10 - Z02.4) 09/10/2024 Intertrigo (ICD-10 - L30.4) 09/10/2024 Seborrheic dermatitis of scalp (ICD-10 - L21.9) 09/25/2024 Screening for colon cancer (ICD-10 - Z12.11) 10/08/2024 Pain in left shoulder (ICD-10 - M25.512) 10/08/2024 Other chronic pain (ICD-10 - G89.29) 10/16/2024 Encounter for screening for malignant neoplasm of respiratory organs (ICD-10 - Z12.2) 10/16/2024 Ex-cigarette smoker (ICD-10 - Z87.891) 10/22/2024 Pain in left shoulder (ICD-10 - M25.512) 10/22/2024 Other chronic pain (ICD-10 - G89.29) 11/10/2024 BMI 35.0-35.9,adult (ICD-10 - Z68.35) 12/03/2024 Contusion of left chest wall, initial encounter (ICD-10 - S20.212A) 12/03/2024 Contusion of left lung, initial encounter (ICD-10 - S27.321A) 10/22/2024 Essential hypertension (ICD-10 - I10) 10/08/2024 BMI 35.0-35.9,adult (ICD-10 - Z68.35) 09/10/2024 Perianal pruritus (ICD-10 - L29.0) 09/10/2024 Essential hypertension (ICD-10 - I10) 10/08/2024 Pulmonary nodules (ICD-10 - R91.8) 10/22/2024 BMI 35.0-35.9,adult (ICD-10 - Z68.35) 09/10/2024 Obesity due to excess calories, unspecified obesity severity (ICD-10 - E66.09) 09/10/2024 Straining to void (ICD-10 - R39.16) 09/10/2024 Benign prostatic hyperplasia with lower urinary tract symptoms (ICD-10 - N40.1) Plan Of Treatment Pending Test Test Name Order Date X ray : Rib series, left 12/03/2024 colonoscopy 09/25/2024 CXR 12/03/2024 Insurance Providers Payer Name Payer Address Payer Phone Subscriber Number Group Number Insured Name Patient Relationship to Insured Coverage Start Date Coverage End Date [employer] [address] [place] [address] [id number] BART MALDONADO Self - patient is the insured Medical (General) History Medical History History ICD Code Hypertension Esophageal Reflux Surgical History Surgery Date(Month/Year) EGD gastritis, hiatal hernia - no surger y 10/2010 Cholecystectomy 03/04/[address] Cook. 06/2018 Gastric sleeve 06/01/2021 Hospitalization History Reason Date(Month/Year) Abdominal pain 08/2016 Abdominal Pain- H 10/07/2010
== END 2024-12-03 23:59 | disposition home or self-care (01) ==
LOC: RAD 16:57
PROVIDERS: PCP Family Medicine; Visit Provider Family Medicine
DX: S22.42XA Multiple fractures of ribs, left side, initial encounter for closed fracture (principal); S20.212A Contusion of left front wall of thorax, initial encounter
CPT/HCPCS: 71046; 71100